=== PATIENT | male | born 2000 | race Caucasian/White ===

== ENCOUNTER 2022-05-17 03:19 | Outpatient (CLI) | payer OTHER | END 2022-05-17 03:20 | disposition short-term general hospital (02) | LOC: EMS 03:19 | DX: R00.2 Palpitations (principal) | CPT/HCPCS: A0425; A0427 ==

== ENCOUNTER 2022-09-24 17:26 | Outpatient (CLI) | payer OTHER | END 2022-09-24 17:27 | disposition short-term general hospital (02) | LOC: EMS 17:26 | DX: R07.89 Other chest pain (principal); R00.0 Tachycardia, unspecified; I49.3 Ventricular premature depolarization | CPT/HCPCS: A0425; A0429 ==

== ENCOUNTER 2023-02-17 20:38 | Outpatient (CLI) | payer OTHER | END 2023-02-17 23:59 | disposition EMS.NT | LOC: EMS 20:38 | DX: R51.9 Headache, unspecified (principal); R11.0 Nausea; R53.83 Other fatigue; W22.8XXA Striking against or struck by other objects, initial encounter; Y92.009 Unspecified place in unspecified non-institutional (private) residence as the place of occurrence of the external cause ==